=== PATIENT | female | born 1990 | race Caucasian/White ===

== ENCOUNTER 2020-04-30 20:25 | Emergency (ER) | payer MEDICAID, SELFPAY ==
[2020-04-30 20:27] VITALS: BP 158/97; PULSE 91; RESP 18; TEMP 36; O2SAT 98; BMI 33.6
--- NOTE | 2020-04-30 20:38 | ED.RN ---
RN CALLED FOR EKG, NO OLD EKGS IN MUSE
--- NOTE | 2020-04-30 20:50 | EKG12_ITS ---
Test Reason : SOB Blood Pressure : / mmHG Vent. Rate : 084 BPM Atrial Rate : 084 BPM P-R Int : 128 ms QRS Dur : 082 ms QT Int : 390 ms P-R-T Axes : 028 050 066 degrees QTc Int : 460 ms Normal sinus rhythm Normal ECG Confirmed by ARGENIS HATCH, EPIFANIO ([id number]), editor department KERA CERDA ([id number]) on 05/04/2020 1:24:56 PM Referred By: TONY Confirmed By:EPIFANIO MORE MD
--- NOTE | 2020-04-30 20:51 | ED.VIS.GEN ---
History of Present Illness Chief Complaint: General Illness Informant: Patient Onset: Days - 2 days Context: Gradual Onset Current Severity: Mild Maximum Severity: Moderate Narrative: Patient presents secondary to fast heart rates, shortness of breath, and UTI symptoms. Patient states symptoms started 2 days ago. She has burning and frequency. She also had intermittent shortness of breath and states her heart rates been running between 115 and 120 for the past 2 days. She states she is been checking her temperature and has not had a fever. She denies cough or any known exposure to Covid. Past Medical History - Allergies and Home Meds Allergies/Adverse Reactions: Allergies No Known Allergies Allergy (Verified 04/30/20 20:26) Primary Care Physician: Karime Garcia MD [Primary Care Provider] - Past Medical History: None Review of Systems General: Denies: Chills, Fever Eyes: Denies: Visual changes - bilaterally ENT: Denies: Bilateral ear pain Cardiovascular: Reports: Heart racing. Denies: Chest pain Respiratory: Reports: Dyspnea. Denies: Cough Gastrointestinal: Denies: Abdominal pain, Nausea, Vomiting Genitourinary: Reports: Dysuria Musculoskeletal: Denies: Swelling, Extremity Pain Skin: Denies: Rash Neurological: Denies: Headache Hematologic: Denies: Easy bruising, Easy bleeding Allergy: Denies: Uticaria Physical Exam Vital Signs/Narrative: Vital Signs Temp Pulse Resp BP Pulse Ox 04/30/20 20:27 96.8 F L 91 18 158/97 H 98 Inital Vital Signs reviewed: Yes General: Well nourished, Well developed Head: Normocephalic Neck: Supple Cardiovascular: Regular rate, Regular rhythm Respiratory: No distress, CTA bilaterally Abdomen: Soft, Nontender, Normal bowel sounds Extremities: Nontender Skin: Normal color Neurological: Alert, Oriented x3 Psychological: Normal affect Diagnostic/Tx/Re-eval Chest X-Ray - ED: 1 View, Read by ED Physician, Normal, Heart, Lungs, Mediastinum Impressions Chest X-Ray 04/30/20 21:10 IMPRESSION: Normal x-ray examination of the chest. Electronically Signed: Srinivas Diaz MD at 21:44 EST , Service support , 04/30/20 21:10 Chest 1 View (Portable) [RAD] Stat 04/30/20 21:00 Mucosa - Nose SARS-CoV-2 Antigen (Rapid) - Final Laboratory Results 04/30/20 04/30/20 04/30/20 20:45 20:45 20:45 WBC 7.8 RBC 4.62 Hgb 14.5 Hct 42.4 MCV 91.8 MCH 31.4 MCHC 34.2 RDW Std Deviation 39.4 RDW Coeff of Michelle 11.7 Plt Count 292 MPV 9.5 Immature Gran % (Auto) 0.400 Neut % (Auto) 57.3 Lymph % (Auto) 32.5 [place] % (Auto) 8.2 Eos % (Auto) 1.3 Baso % (Auto) 0.3 Absolute Neuts (auto) 4.5 Absolute Lymphs (auto) 2.53 Nucleated RBC % 0 D-Dimer Quant (PE/DVT) 0.31 Sodium 137 Potassium 3.8 Chloride 105 Carbon Dioxide 26.0 Anion Gap 6 BUN 10 Creatinine 0.77 Estim Creat Clear Calc 87.57 Est GFR (MDRD) Af Amer 111 Est GFR (MDRD) Non-Af 92 BUN/Creatinine Ratio 12.9 Glucose 117 H Calcium 8.3 L Troponin I < 0.015 TSH 5.92 H Serum , Qual Urine Color Urine Clarity Urine pH Ur Specific [place] Urine Protein Urine Glucose (UA) Urine Ketones Urine Occult Blood Urine Nitrite Urine Bilirubin Urine Urobilinogen Ur Leukocyte Esterase Urine RBC Urine WBC Ur Squamous Epith Cells Urine Bacteria Urine Mucus 04/30/20 04/30/20 20:45 21:05 WBC RBC Hgb Hct MCV MCH MCHC RDW Std Deviation RDW Coeff of Michelle Plt Count MPV Immature Gran % (Auto) Neut % (Auto) Lymph % (Auto) [place] % (Auto) Eos % (Auto) Baso % (Auto) Absolute Neuts (auto) Absolute Lymphs (auto) Nucleated RBC % D-Dimer Quant (PE/DVT) Sodium Potassium Chloride Carbon Dioxide Anion Gap BUN Creatinine Estim Creat Clear Calc Est GFR (MDRD) Af Amer Est GFR (MDRD) Non-Af BUN/Creatinine Ratio Glucose Calcium Troponin I TSH Serum , Qual NEGATIVE Urine Color Yellow Urine Clarity Clear Urine pH 6.0 Ur Specific [place] 1.020 Urine Protein 30 H Urine Glucose (UA) Normal Urine Ketones Negative Urine Occult Blood 150 H Urine Nitrite Positive H Urine Bilirubin Negative Urine Urobilinogen Normal Ur Leukocyte Esterase 500 H Urine RBC 5-10 SEEN Urine WBC 5-10 SEEN Ur Squamous Epith Cells 0-5 SEEN Urine Bacteria RARE Urine Mucus 0 SEEN - EKG Initial EKG Interpretation: Sinus Rhythm - Sinus 84 with no acute ischemia. - Medical Decision Making Patient is observed on youth nutritional monitor throughout her ED stay with no significant arrhythmia noted. Blood work is reviewed. She does have evidence of UTI. TSH is slightly elevated and she will require follow-up with her PCP for further testing. This was discussed with patient as well as family at bedside. Covid test is negative. Patient will be given a dose of Bactrim here and prescription for 3 days will be sent to the pharmacy for her. She is given return instructions. ED Disposition - Plan for ED Patient: Disposition: Home or Assisted Living Diagnosis: UTI (urinary tract infection) Instructions: ED Bladder Infection, Female (Adult) Prescriptions: Smz/Tmp Ds [Bactrim Ds] 1 tab PO BID #6 tab Transmission Status: Pending to [facility] [facility] Referrals: Karime Garcia MD [Primary Care Provider] - As soon as possible
[2020-04-30 21:08] VITALS: PULSE 88; RESP 21; O2SAT 100
[2020-04-30 21:10] VITALS: BP 124/86
--- NOTE | 2020-04-30 21:10 | RAD_ITS ---
STUDY: X-RAY CHEST REASON FOR EXAM: Female, 29 years old. UTI symptoms and SOB TECHNIQUE: Single AP portable view of the chest. COMPARISON: None. FINDINGS: The lungs are clear and expanded. There is no demonstrated pleural abnormality. Normal size heart. Normal mediastinum and armando. Normal visualized pulmonary arteries. Normal visualized aortic arch and descending thoracic aorta. Normal visualized thoracic spine. Normal visualized ribs, clavicles, and shoulders. There is no demonstrated abnormality of the visualized soft tissue structures of the upper abdomen. RAD/Chest 1 View (Portable) IMPRESSION: Normal x-ray examination of the chest. Electronically Signed: Srinivas Diaz MD at 21:44 EST , Service support ,
[2020-04-30 21:13] VITALS: O2SAT 100
[2020-04-30 21:17] LABS: Mucous, Urine 0 SEEN /hpf (<or=2+)
[2020-04-30 21:19] LABS: Absolute Lymphocyte Count 2.53 X10^3/uL (0.83-4.51); Absolute Neutrophil Count 4.5 X10^3/uL (2.0-7.7); Basophil# 0.02 X10^3/uL; Basophil% 0.3 % (0-1); Eosinophils% 1.3 % (0-5); Hematocrit 42.4 % (37-47); Hemoglobin 14.5 g/dL (12.0-15.0); Lymphocyte # 2.53 X10^3/ul (4.0); Lymphocyte % 32.5 % (19-41); Mean Corp Hgb Conc 34.2 g/dL (32-36); Mean Corpuscular Hgb 31.4 pg (27.0-32.0); Mean Corpuscular Volume 91.8 fL (81-99); Mean Platelet Vol. 9.5 fl (6.2-12.0); Monocyte# 0.64 X10^3/uL; Monocyte% 8.2 % (0-10); NRBC Flagged by Analyzer 0 % (0-5); Neutrophil # 4.46 X10^3/uL (2.7-7.7); Neutrophil % 57.3 % (47-70); Platelet Count 292 K/mm3 (150-450); RBC Distribution Width CV 11.7 % (11.6-14.6); RBC Distribution Width SD 39.4 fl (35.1-43.9); Red Blood Count 4.62 M/mm3 (4.2-5.4); White Blood Count 7.8 K/mm3 (4.4-11.0)
[2020-04-30 21:23] LABS: Color, Urine Yellow (Yellow); Glucose, Dipstick Normal (Normal); Ketone-Dipstick Negative (Negative); Leukocyte Esterase-Dipstick 500 /ul (Negative); Nitrite-Dipstick Positive (Negative); Occult Blood-Urine 150 /ul (Negative); Protein-Dipstick 30 mg/dl (Negative); Urine Bilirubin Dipstick Negative (Negative); Urine Clarity Clear (Clear); Urine Urobilinogen Normal (Normal)
[2020-04-30 21:31] LABS: D-Dimer Quantitative (DVT/PE) 0.31 FEU/ug/m (0.27-0.49)
[2020-04-30 21:44] LABS: Red Blood Cells-Urine 5-10 SEEN /hpf (0-5); White Blood Cells 5-10 SEEN /hpf (0-5)
[2020-04-30 21:45] LABS: Anion Gap 6 (5-15); BUN 10 mg/dL (7-18); BUN/Creat Ratio 12.9 RATIO (10-20); Calcium,Total 8.3 mg/dL (8.5-10.1); Chloride 105 mmol/L (98-107); Creatinine, Serum 0.77 mg/dL (0.55-1.02); EST Glomerular Filtration Rate 92 mL/min (>60); Est Glom Filt Rate - Afr Amer 111 mL/min (>60); Estimated Creatinine Clearance 87.57 ml/min; Glucose 117 mg/dL (74-106); Potassium 3.8 mmol/L (3.5-5.1); Sodium Level 137 mmol/L (136-145); Thyroid Stim Hormone (TSH) 5.92 uIU/mL (0.358-3.74)
[2020-04-30 21:45] LABS: Squamous Epithelial Cells - UA 0-5 SEEN /hpf (5-10)
[2020-04-30 21:48] LABS: Bacteria RARE /hpf (None Seen)
[2020-04-30 21:49] LABS: Internal QC Validated? YES +Cl - CLEAR BKGD; Pregnancy, Serum, hCG Quali. NEGATIVE Negative
[2020-04-30 22:01] VITALS: BP 142/103; PULSE 84; RESP 18; O2SAT 99
[2020-04-30] MEDS: Smz/Tmp Ds Tablet 1 TABLET PO (22:04)
== END 2020-04-30 22:10 | disposition home or self-care (01) ==
PROVIDERS: Emergency Provider Emergency Medicine; PCP Specialist
DX: N39.0 Urinary tract infection, site not specified (principal); R06.00 Dyspnea, unspecified; R06.02 Shortness of breath; Z20.822 Contact with and (suspected) exposure to COVID-19; Z79.899 Other long term (current) drug therapy
CPT/HCPCS: 71045; 80048; 81001; 84443; 84484; 84703; 85025; 85379; 87426; 93005; 99285